=== PATIENT | female | born 1930 | race Caucasian/White ===

== ENCOUNTER 2016-11-09 17:45 | Emergency (ER) | payer OTHER ==
[~2016-11-09] VITALS: Ht 160 cm; Wt 78.0 kg
[~2016-11-09 17:45] MED LIST: ACET1TAB40 PO; ATOR80TA75 PO; CLOP75TA27 PO; DONE10TA7 PO; FESO8TAB PO; LEVO125T75 PO; LISI-313 PO; MTF1000T PO; ONDA-43 PO; REPA1TAB14 PO
[2016-11-09 17:48] VITALS: Ht 160 cm; Wt 78.0 kg
[2016-11-09 18:05] VITALS: BP 173/95; PULSE 88; RESP 18
[2016-11-09] MEDS ORDERED: morphine 4 MG/ML VIAL IV STA (18:53)
[2016-11-09] MEDS ORDERED: SOD CHLORIDE 0.9% 500 ML IV STA (18:53)
[2016-11-09 19:13] LABS: BASOPHILS % 0.4 % (0.0-2.0); EOSINOPHILS # 0.1 10^3/ul (0.0-0.5); EOSINOPHILS % 0.8 % (0.0-7.0); HEMATOCRIT 45.6 % (37.0-47.0); HEMOGLOBIN 15.7 g/dl (12.0-16.0); LYMPHOCYTES # 1.2 10^3/ul (0.8-2.9); LYMPHOCYTES % 12.8 % (15.0-51.0); MEAN CORPUSCULAR HEMOGLOBIN 31.8 pg (29.0-33.0); MEAN CORPUSCULAR HGB CONC 34.4 g/dl (32.0-37.0); MEAN CORPUSCULAR VOLUME 92.5 fl (82.0-101.0); MEAN PLATELET VOLUME 10.8 fl (7.4-10.4); MONOCYTE # 0.7 10^3/ul (0.3-0.9); MONOCYTES % 8.2 % (0.0-11.0); NEUTROPHILS % 77.4 % (39.0-77.0); PLATELET COUNT 204 10^3/UL (140-415); RED BLOOD COUNT 4.93 10^6/ul (4.20-5.40); RED CELL DISTRIBUTION WIDTH 12.8 % (11.5-14.5); WHITE BLOOD COUNT 9.1 10^3/ul (4.8-10.8)
[2016-11-09 19:28] LABS: INR 0.99; PROTIME 13.1 Sec (12.2-14.2)
[2016-11-09 19:29] LABS: ALANINE AMINOTRANSFERASE 27 IU/L (13-69); ALBUMIN 4.6 g/dl (3.3-4.9); ALBUMIN/GLOBULIN RATIO 1.39; ALKALINE PHOSPHATASE 88 IU/L (42-121); ANION GAP 23 (8-16); ASPARTATE AMINO TRANSFERASE 20 IU/L (15-46); BILIRUBIN,INDIRECT 0.6 mg/dl (0-1.1); BILIRUBIN,TOTAL 0.6 mg/dl (0.2-1.3); BLOOD UREA NITROGEN 21 mg/dl (7-20); CALCIUM 10.7 mg/dl (8.4-10.2); CARBON DIOXIDE 22 mmol/L (21-31); CHLORIDE 105 mmol/L (97-110); CREATININE 0.76 mg/dl (0.44-1.00); GLUCOSE 176 mg/dl (70-220); POTASSIUM 4.3 mmol/L (3.5-5.1); SODIUM 146 mmol/L (135-144); TOTAL PROTEIN 7.9 g/dl (6.1-8.1)
[2016-11-09 19:46] LABS: TROPONIN-I < 0.012 ng/ml (0.00-0.12)
[2016-11-09 20:00] LABS: PARTIAL THROMBOPLASTIN TIME 28.1 Sec (25.0-35.0)
--- NOTE | 2016-11-09 22:00 | RADRPT ---
AMENDMENT: 11/15/2016 10:51:47 PM Luz Elena Jenkins M.D One or more of the following dose reduction techniques were used: - Automated exposure control. - Adjustment of the mA and/or kV according to patient size. - Use of iterative reconstruction technique. PROCEDURE: CT ABDOMEN AND PELVIS WITHOUT CONTRAST: CLINICAL INDICATION: 86-year of age, female , abdominal pain. COMPARISON: None available. TECHNIQUE: CT of the abdomen and pelvis was performed without intravenous contrast. Oral contrast wa s not administered prior to the examination. Coronal and sagittal reformatted images were obtained from the axial source images. Images were revi ewed on a high-resolution PACS workstation. Dose information: Based on a 32 cm phantom, the estimated radiation dose (CTDI vol mGy) for each ser ies in this exam is 14.9. The estimated cumulative dose (DLP mGy-cm) is 764. FINDINGS: In the absence of intravenous contrast, the study constitutes a limited assessment of the solid orga ns, bowel and vessels. LUNG BASES: Dense coronary artery calcification greatest along LAD. Bilateral dependent atelectasis . ABDOMEN/PELVIS: Liver: Normal noncontrast appearance. Gallbladder: Status post cholecystectomy. Bile ducts: Moderate intrahepatic and extrahepatic biliary duct dilatation is greater than expected post cholecystectomy. Common bile duct measures 1.6 cm in dayne hepatis. Duct is followed to the a mpulla. Spleen: Normal noncontrast appearance. Pancreas: Normal noncontrast appearance. Adrenal glands: 2.2 cm left adrenal mass contains macroscopic fat and likely represents a myelolipom a. There is a 1.3 cm low-attenuation nodule in the left adrenal gland is well. Right adrenal gland is normal. Kidneys and ureters: Normal noncontrast appearance. Negative for urinary calculi or hydronephrosis . Aorta and IVC: Atherosclerosis aorta and iliac vessels. 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 Transverse diameter of the aorta measures 2 .1 x 2.6 cm in this location. Lymph nodes: Normal noncontrast appearance. Gastrointestinal tract: 3.8 cm gas and debris filled diverticulum arising from second portion of duo denum at ampulla and 6.6 cm duodenal diverticulum arising from third portion. Negative for evidence of diverticulitis. There is an above average amount of stool in the distal colon. Scattered colonic diverticula. Bowel loops are decompressed. Appendix: Not visualized Bladder: Normal noncontrast appearance. Pelvic Organs: The uterus and adnexa are unremarkable. Peritoneal cavity: No free fluid or free intraperitoneal air. Abdominal wall: Nodule subcutaneous fat abdominal wall to right of umbilicus may be from subcutaneo us injections. BONES: Musculoskeletal: Bones are osteopenic. Multilevel degenerative changes in lumbar spine with curvatu re convex right. 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 No suspicious bone lesions. IMPRESSION: Above average amount of stool in the distal colon may indicate constipation. Bowel loops are decomp ressed. Duodenal and colonic diverticulosis without diverticulitis. Moderate dilatation of intrahepatic and extrahepatic bile ducts is more than expected post cholecyst ectomy and is concerning for biliary obstruction. Recommend correlation with liver tests to evaluat e for potential biliary stasis. The biliary tree could better be evaluated with ultrasound or MRCP if the clinical situation warrants. Correlation with previous imaging would be helpful. 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 1.3 cm left adrenal nodule may represent an adenoma. In the absence of a known primary neoplasm and risk f actors for adrenal metastases, recommend correlation with endocrine studies to evaluate for a functi oning adenoma or pheochromocytoma and follow up adrenal CT or MRI in 12 months or correlation with previous imaging of available. 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 RPTAT: [facility]CTS Physician Otilia Date Time Electronically viewed and signed by Physician Otilia on 11/15/2016 22:52 CS/
[2016-11-09 22:13] LABS: ADD UMIC YES; UR ASCORBIC ACID NEGATIVE (NEGATIVE); UR BACTERIA FEW /HPF (NONE SEEN); UR BILIRUBIN (Dip) NEGATIVE (NEGATIVE); UR BLOOD (Dip) 2+ mg/dL (NEGATIVE); UR CLARITY CLOUDY (CLEAR); UR COLOR YELLOW (YELLOW); UR GLUCOSE (Dip) NEGATIVE (NEGATIVE); UR KETONES (Dip) TRACE mg/dL (NEGATIVE); UR LEUKOCYTE ESTERASE (Dip) 3+ Leu/ul (NEGATIVE); UR NITRITE (Dip) NEGATIVE (NEGATIVE); UR RBC 10 /HPF (0-5); UR SPECIFIC GRAVITY (Dip) 1.013 (1.003-1.030); UR SQUAMOUS EPITHELIAL CELL FEW /HPF (FEW); UR TOTAL PROTEIN (Dip) NEGATIVE (NEGATIVE); UR UROBILINOGEN (Dip) NEGATIVE (NEGATIVE)
--- NOTE | 2016-11-09 22:16 | ERA ---
ER Documentation Chief Complaint Date/Time DATE: 11/09/16 TIME: 22:12 Chief Complaint BACK PAIN, RIGHT ARM AIN SINCE LAST NIGHT HPI This is an 86-year-old female with a past medical history of diabetes, hypertension, dementia and constipation is presenting with constipation and lumbar back pain. Patient describes the pain is sharp and stabbing. It is more bilateral paraspinal than it is midline. She does not endorse flank pain. She has not been sick recently. She denies fever or chills. She has not been nauseated and has not vomited. She has no chest pain or trouble breathing. She does not endorse trouble with urination. Patient does have dementia, but she is alert and oriented. According to the patient's son, she has not had a bowel movement in several days. Not have any focal deficits. She has no weakness or numbness or tingling to the face or extremities. ROS All systems reviewed and are negative except as per history of present illness. Medications Home Meds Active Scripts Polyethylene Glycol* (Miralax*) 17 Gm Powd.pack, 17 GM PO DAILY, #7 Prov:KIM JI MD 11/09/16 Polyethylene Glycol* (Miralax*) 17 Gm Powd.pack, 17 GM PO DAILY Y for constipation, #7 Prov:ALTHEA LOMAX MD 11/09/16 Repaglinide* (Prandin*) 1 Mg Tablet, 1 MG PO AC MEALS for 10 Days, TAB Prov:JUANCARLOS ADAMES MD 12/16/15 Reported Medications Lisinopril* (Lisinopril*) 5 Mg Tablet, 5 MG PO DAILY, #30 TAB 08/15/15 Levothyroxine Sodium* (Levothyroxine Sodium*) 125 Mcg Tablet, 125 MCG PO BEFORE BREAKFAST, #30 TAB 08/15/15 Donepezil* (Donepezil*) 10 Mg Tablet, 10 MG PO BID, #30 TAB 08/15/15 Ondansetron Hcl* (Zofran*) 4 Mg Tab, 4 MG PO Q4H Y for NAUSEA AND OR VOMITING, TAB 08/15/15 Clopidogrel Bisulfate (Clopidogrel) 75 Mg Tablet, 75 MG PO DAILY, #30 TAB 08/15/15 Atorvastatin* (Atorvastatin*) 80 Mg Tablet, 80 MG PO QHS, #30 TAB 08/15/15 Fesoterodine Fumarate (Toviaz) 8 Mg Tab.sr.24h, 8 MG PO DAILY, TAB 08/15/15 Metformin* (Glucophage*) 1,000 Mg Tablet, 1000 MG PO BID, #60 TAB 08/15/15 Acetaminophen-Codeine* (Acetaminophen-Cod #3*) 300-30 Mg Tab, 1 TAB PO Q4H Y for PAIN, #30 TAB 08/15/15 Allergies Allergies: Coded Allergies: aspirin (Verified Allergy, Severe, 12/15/15) oxycodone (Verified Allergy, Severe, 12/15/15) acetaminophen (Verified Allergy, Unknown, 12/15/15) hydrocodone (Verified Allergy, Unknown, 12/15/15) PMhx/Soc History of Surgery: No Hx Neurological Disorder: Yes (Stroke 4 years ago, dementia) Hx Respiratory Disorders: No Hx Cardiac Disorders: Yes (HTN.) Hx Psychiatric Problems: No Hx Miscellaneous Medical Probl: Yes (DM) Hx Alcohol Use: No Hx Substance Use: No Hx Tobacco Use: No Smoking Status: Never smoker Physical Exam Vitals Vital Signs Date Time Temp Pulse Resp B/P Pulse Ox O2 Delivery O2 Flow Rate FiO2 11/09/16 18:05 88 18 173/95 99 Room Air 11/09/16 17:48 98.7 102 20 142/86 99 Physical Exam Const: NAD Head: Atraumatic Eyes: Normal Conjunctiva ENT: Normal External Ears, Nose and Mouth. Neck: Full range of motion. ~ No meningismus. Resp: Clear to auscultation bilaterally Cardio: Regular rate and rhythm, no murmurs Abd: Soft, distended, mild discomfort diffusely. Normal bowel sounds Skin: No petechiae or rashes Back: No midline or flank tenderness. paraspinal tenderness. Ext: No cyanosis, or edema Neur: Awake and alert Psych: Normal Mood and Affect Result Diagram: 11/09/16185311/09/161853 Results 24 hrs Laboratory Tests Test 11/09/16 18:54 11/09/16 21:51 White Blood Count 9.110^3/ul Red Blood Count 4.9310^6/ul Hemoglobin 15.7g/dl Hematocrit 45.6% Mean Corpuscular Volume 92.5fl Mean Corpuscular Hemoglobin 31.8pg Mean Corpuscular Hemoglobin Concent 34.4g/dl Red Cell Distribution Width 12.8% Platelet Count 82544^3/UL Mean Platelet Volume 10.8fl Neutrophils % 77.4% Lymphocytes % 12.8% Monocytes % 8.2% Eosinophils % 0.8% Basophils % 0.4% Nucleated Red Blood Cells % 0.0/100WBC Neutrophils # (Manual) 7.010^3/ul Lymphocytes # 1.210^3/ul Monocytes # 0.710^3/ul Eosinophils # 0.110^3/ul Basophils # 0.010^3/ul Nucleated Red Blood Cells # 0.010^3/ul Prothrombin Time 13.1Sec Prothrombin Time Ratio 1.0 INR International Normalized Ratio 0.99 Activated Partial Thromboplast Time 28.1Sec Sodium Level 146mmol/L Potassium Level 4.3mmol/L Chloride Level 105mmol/L Carbon Dioxide Level 22mmol/L Anion Gap 23 Blood Urea Nitrogen 21mg/dl Creatinine 0.76mg/dl Glucose Level 176mg/dl Calcium Level 10.7mg/dl Total Bilirubin 0.6mg/dl Direct Bilirubin 0.00mg/dl Indirect Bilirubin 0.6mg/dl Aspartate Amino Transf (AST/SGOT) 20IU/L Alanine Aminotransferase (ALT/SGPT) 27IU/L Alkaline Phosphatase 88IU/L Troponin I < 0.012ng/ml Total Protein 7.9g/dl Albumin 4.6g/dl Globulin 3.30g/dl Albumin/Globulin Ratio 1.39 Lipase 46U/L Urine Color YELLOW Urine Clarity CLOUDY Urine pH 5.0 Urine Specific [place] 1.013 Urine Ketones TRACEmg/dL Urine Nitrite NEGATIVEmg/dL Urine Bilirubin NEGATIVEmg/dL Urine Urobilinogen NEGATIVEmg/dL Urine Leukocyte Esterase 3+Iris/ul Urine Microscopic RBC 10/HPF Urine Microscopic WBC 10/HPF Urine Squamous Epithelial Cells FEW/HPF Urine Bacteria FEW/HPF Urine Hemoglobin 2+mg/dL Urine Glucose NEGATIVEmg/dL Urine Total Protein NEGATIVEmg/dl Current Medications Medications (Trade) Dose Ordered Sig/Fouzia Route PRN Reason Start Time Stop Time Status Last Admin Dose Admin Sodium Chloride (NS) 500 ml @ 500 mls/hr Q1H STAT IV 11/09/16 18:53 11/09/16 19:52 DC 11/09/16 19:26 Morphine Sulfate (morphine) 4 mg ONCE STAT IV 11/09/16 18:53 11/09/16 18:56 DC 11/09/16 19:25 Procedures/MDM The patient initially had concerns of back pain. However, upon further evaluation, there was a strong consideration for constipation. That said, this is a diagnosis of exclusion, and other emergent etiologies needed to be ruled out, such as compression fracture, Kidney stone, infection, AAA. The patient's blood work was obtained and reviewed. He has no leukocytosis or shift. She is afebrile and I do not suspect a systemic infection. She is not anemic. Patient's CMP is unremarkable. The patient's CT of the abdomen and pelvis demonstrates the following as read by radiology: IMPRESSION: 1) Above average amount of stool in the distal colon may indicate constipation. Bowel loops are decompressed. 2) Duodenal and colonic diverticulosis without diverticulitis. 3) Moderate dilatation of intrahepatic and extrahepatic bile ducts is more than expected post cholecystectomy and is concerning for biliary obstruction. Recommend correlation with liver tests to evaluate for potential biliary stasis. The biliary tree could better be evaluated with ultrasound or MRCP if the clinical situation warrants. Correlation with previous imaging would be helpful. 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 1.3 cm left adrenal nodule may represent an adenoma. In the absence of a known primary neoplasm and risk factors for adrenal metastases , recommend correlation with endocrine studies to evaluate for a functioning adenoma or pheochromocytoma and follow up adrenal CT or MRI in 12 months or correlation with previous imaging of available. 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 There are no hematologic findings of biliary disease. She likewise does not have any right upper quadrant tenderness. This may be worked up as an outpatient. The patient's left adrenal nodule is likely an incidental finding, which may also be evaluated as an outpatient. The patient was constipated, and her symptoms actually completely resolved after she had a bowel movement in the emergency department. I do suspect constipation as an etiology of her symptoms. He will be given a prescription for MiraLAX. The CT scan likewise only shows diverticulosis. Patient also does not have a AAA. Patient's urinalysis does show signs of possible UTI. The urine culture will be sent off for further evaluation. This should be treated. At this time, the patient stable for discharge. She needs to follow-up with her primary care physician. She will be given precautions with which to return to the emergency department. Departure Diagnosis: Primary Impression: Constipation Qualified Code: K59.00 - Constipation, unspecified constipation type Additional Impressions: Hypercalcemia Adrenal adenoma Qualified Code: D35.00 - Adrenal adenoma, unspecified laterality UTI (urinary tract infection) Qualified Code: N39.0 - Urinary tract infection without hematuria, site unspecified Condition: ALTHEA Ayala MD Nov 09, 2016 22:16
[2016-11-09] MEDS ORDERED: POLY17PO6 PO ×2 (22:17→22:22)
--- NOTE | 2016-11-10 00:34 | EN ---
Date/Time of Note Date/Time of Note DATE: 11/10/16 TIME: 00:32 ER Progress Note The patient left before a prescription for her urinary tract infection could be prescribed. The patient should receive Keflex 500 mg tablets to be taken twice daily for 7 days. A voicemail was left for the patient. The patient was instructed to call or return to the emergency department to have this prescription provided to her. Alternatively, if she does call, the provider working at that time may be able to call in a prescription. The patient did not endorse symptoms of a urinary tract infection, this could potentially be related to colonization. However, I do anticipate that it should be treated. ALTHEA LOMAX MD Nov 10, 2016 00:34
== END 2016-11-09 23:08 | disposition home or self-care (01) ==
LOC: E/R 17:45
DX: K59.00 Constipation, unspecified (principal); E83.52 Hypercalcemia; D35.00 Benign neoplasm of unspecified adrenal gland; N39.0 Urinary tract infection, site not specified; I10 Essential (primary) hypertension; E11.9 Type 2 diabetes mellitus without complications; R10.9 Unspecified abdominal pain; Z79.84 Long term (current) use of oral hypoglycemic drugs
CPT/HCPCS: 36415; 74176; 80053; 81001; 83690; 84484; 85025; 85610; 85730; 93005; 96374; 99285; J2270; J7040

== ENCOUNTER 2017-06-25 12:05 | Emergency (ER) | END 2017-06-25 15:39 | disposition home or self-care (01) ==